=== PATIENT | male | born 2000 | race Caucasian/White ===

== ENCOUNTER → 2019-06-02 | Outpatient (CLI) | payer SELFPAY | LOC: LAB 14:23 | DX: Z20.2 Contact with and (suspected) exposure to infections with a predominantly sexual mode of transmission (principal) ==

== ENCOUNTER → 2020-01-03 | Outpatient (CLI) | payer OTHER | LOC: LAB 11:38 | DX: U07.1 COVID-19 (principal) ==

== ENCOUNTER → 2021-10-25 | Outpatient (CLI) | payer SELFPAY | LOC: RAD 11:47 | DX: I86.1 Scrotal varices (principal); N50.89 Other specified disorders of the male genital organs ==